=== PATIENT | female | born 1950 | race Asian ===

== ENCOUNTER 2022-11-15 15:02 | Outpatient (CLI) | payer MEDICARE | END 2022-11-15 15:03 | disposition home or self-care (01) | LOC: CSHMAMMO 15:02 | PROVIDERS: ATTEND Internal Medicine | DX: Z12.31 Encounter for screening mammogram for malignant neoplasm of breast (principal) | CPT/HCPCS: 77063; 77067 ==

== ENCOUNTER 2024-02-05 13:37 | Outpatient (CLI) | payer MEDICARE | END 2024-02-05 13:38 | disposition home or self-care (01) | LOC: CSHULT 13:37 | PROVIDERS: ATTEND Internal Medicine | DX: R01.1 Cardiac murmur, unspecified (principal); I07.1 Rheumatic tricuspid insufficiency | CPT/HCPCS: 93306 ==